=== PATIENT | female | born 1950 | race Caucasian/White ===

== ENCOUNTER → 2024-03-27 | Outpatient (CLI) | payer BC ==
[2024-03-27 11:42] LABS: Basophils # (auto) 0.1 10 ^3/uL (0-0.2); Basophils % (auto) 0.9 % (0.0-2.0); Eosinophils # (auto) 0.2 10 ^3/uL (0-0.8); Eosinophils % (auto) 1.4 % (0.0-7.0); Hematocrit 41.6 % (36.0-46.0); Hemoglobin 13.9 g/dL (12.2-16.2); Lymphocytes # (auto) 1.3 10 ^3/uL (0.4-5.4); Lymphocytes % (auto) 10.7 % (10.0-50.0); Mean Corpuscular Hgb Conc. 33.5 g/dL (32.0-36.0); Mean Corpuscular Volume 86.5 fL (80.0-100.0); Monocytes # (auto) 0.8 10 ^3/uL (0-1.3); Monocytes % (auto) 6.1 % (0.0-12.0); Neutrophils # (auto) 10.2 10 ^3/uL (1.6-8.6); Neutrophils % (auto) 80.9 % (37.0-80.0); Nucleated Red Blood Cells % 0.1 %; Red Cell Distribution Width 14.4 % (11.8-14.3); White Blood Cell 12.6 10^3/uL (4.4-10.8)
[2024-03-27 12:16] LABS: Urine Bacteria FEW /hpf (None Seen); Urine Blood Negative /uL (Negative); Urine Clarity Turbid (Clear); Urine Color Yellow (Yellow); Urine Mucus FEW (None Seen); Urine Protein, UAD TRACE (Negative); Urine Specific Gravity 1.023 (1.001-1.035); Urine Urobilinogen Normal (Negative); Urine WBC 2 /hpf (0 - 5); Urine pH 5.5 (5.0-9.0)
[2024-03-27 12:35] LABS: Alanine Aminotransferase 10 U/L (7-40); Alkaline Phosphatase 64 U/L (46-116); Anion Gap 7 (5-15); Aspartate Aminotransferase < 8 U/L (13-40); BUN/Creatinine Ratio 13.5 (10.0-20.0); Blood Urea Nitrogen 7 mg/dL (9-23); Calcium 9.1 mg/dL (8.7-10.4); Carbon Dioxide 28 mmol/L (20-30); Chloride 106 mmol/L (98-107); Glucose 90 mg/dL (74-106); LDL Cholesterol 82 mg/dL (< 100); Potassium 3.7 mmol/L (3.5-5.1); Sodium 141 mmol/L (136-145); Triglycerides 120 mg/dL (< 150)
[2024-03-27 12:36] LABS: Bilirubin, Total 0.8 mg/dL (0.2-1.0); Cholesterol 164 mg/dL (< 200); HDL Cholesterol 56 mg/dL (40-59); Phosphorus 3.4 mg/dL (2.4-5.1); Total Protein 6.3 g/dL (5.7-8.2)
[2024-03-27 12:38] LABS: % Iron Saturation 23.2 % (15-50)
[2024-03-27 12:42] LABS: Free T3 2.88 pg/mL (2.3-4.2)
[2024-03-27 12:43] LABS: Free T4 (Free Thyroxine) 1.29 ng/dL (0.89-1.76)
[2024-03-27 12:44] LABS: T3 Total 1.06 ng/mL (0.60-1.81)
== END | disposition home or self-care (01) ==
LOC: LAB 11:22
PROVIDERS: ATTEND Family Medicine
DX: K56.609 Unspecified intestinal obstruction, unspecified as to partial versus complete obstruction (principal); R11.2 Nausea with vomiting, unspecified; I10 Essential (primary) hypertension
CPT/HCPCS: 36415; 80053; 80061; 81001; 83036; 83540; 83550; 84100; 84439; 84443; 84480; 84481; 85025

== ENCOUNTER 2025-01-27 13:38 | Outpatient (CLI) | payer BC | END 2025-01-27 17:00 | disposition home or self-care (01) | LOC: LAB 13:38 | PROVIDERS: ATTEND Family Medicine | DX: Z12.11 Encounter for screening for malignant neoplasm of colon (principal) | CPT/HCPCS: 82270 ==

== ENCOUNTER → 2025-04-04 | Outpatient (CLI) | payer BC ==
[2025-04-04 11:32] LABS: Hematocrit 44.0 % (36.0-46.0); Hemoglobin 15.5 g/dL (12.2-16.2); Mean Corpuscular Hemoglobin 30.3 pg (28.0-32.0); Mean Corpuscular Volume 86.0 fL (80.0-100.0); Nucleated Red Blood Cells % 0.2 %
[2025-04-04 11:35] LABS: Urine Protein, UAD TRACE (Negative)
[2025-04-04 11:55] LABS: Iron 93.0 ug/dL (50-170)
[2025-04-04 11:58] LABS: Total Iron Binding Capacity 295.0 ug/dL (250-425)
[2025-04-04 12:01] LABS: Alanine Aminotransferase 11 U/L (7-40); Albumin 4.6 g/dL (3.2-4.8); Alkaline Phosphatase 50 U/L (46-116); Anion Gap 7 (5-15); BUN/Creatinine Ratio 22.4 (10.0-20.0); Bilirubin, Total 0.8 mg/dL (0.2-1.0); Blood Urea Nitrogen 17 mg/dL (9-23); Calcium 9.1 mg/dL (8.7-10.4); Carbon Dioxide 26 mmol/L (20-31); Chloride 105 mmol/L (98-107); Glucose 94 mg/dL (74-106); Potassium 4.3 mmol/L (3.5-5.1); Sodium 138 mmol/L (136-145); Total Protein 6.8 g/dL (5.7-8.2); Uric Acid 4.4 mg/dL (3.1-7.8)
[2025-04-04 12:14] LABS: Triglycerides 72 mg/dL (< 150)
[2025-04-04 12:16] LABS: Cholesterol 173 mg/dL (< 200)
[2025-04-04 12:20] LABS: HDL Cholesterol 79 mg/dL (40-59)
== END | disposition home or self-care (01) ==
LOC: LAB 10:51
PROVIDERS: ATTEND Family Medicine
DX: I10 Essential (primary) hypertension (principal); R53.83 Other fatigue; D72.829 Elevated white blood cell count, unspecified; R11.2 Nausea with vomiting, unspecified; Z00.00 Encounter for general adult medical examination without abnormal findings; Z68.1 Body mass index [BMI] 19.9 or less, adult
CPT/HCPCS: 36415; 80053; 80061; 81001; 82306; 82607; 83036; 83540; 83550; 84443; 84550; 85025; 87086

== ENCOUNTER → 2025-07-24 | Outpatient (CLI) | payer BC | END | disposition home or self-care (01) | LOC: LAB 10:51 | PROVIDERS: ATTEND Family Medicine | DX: R73.03 Prediabetes (principal); R11.2 Nausea with vomiting, unspecified; R79.89 Other specified abnormal findings of blood chemistry | CPT/HCPCS: 36415; 82306; 82607; 83036 ==